=== PATIENT | male | born 1945 | race Two or more races ===

== ENCOUNTER → 2020-06-07 | Outpatient (CLI) | payer MEDICARE ==
[2015-10-04 09:16] VITALS: BP 114/75
[~2020-06-07] MED LIST: ASPI-630 PO; HYDR-2769 PO; LISI-334 PO
[2020-06-07 11:11] LABS: ALBUMIN 3.8 g/dL (3.4-5.0); DIRECT BILIRUBIN 0.1 mg/dL (0.0-0.2); TOTAL BILIRUBIN 0.3 mg/dL (0.2-1.0); TOTAL PROTEIN 7.9 g/dL (6.4-8.2)
== END ==
LOC: LAB 10:00
PROVIDERS: ATTEND Internal Medicine Infectious Disease
DX: A15.0 Tuberculosis of lung (principal)
CPT/HCPCS: 36415; 80076